=== PATIENT | male | born 1975 | race Caucasian/White ===

== ENCOUNTER 2020-10-30 09:44 | Emergency (ER) | payer SELFPAY ==
[2020-10-30] MEDS ORDERED: SUMAtriptan 6 MG/0.5 ML SDV SUBCUT ONE (10:06)
[2020-10-30] MEDS ORDERED: Ketorolac 30 MG/ML SDV IM ONE (10:06)
--- NOTE | 2020-10-30 10:16 | EDM.PDOC ---
ED HPI GENERAL MEDICAL PROBLEM - General Chief Complaint: Headache Stated Complaint: HEADACHE Time Seen by Provider: 10/30/20 10:00 Source of Information: Reports: Patient - History of Present Illness INITIAL COMMENTS - FREE TEXT/NARRATIVE: Jeff is a 44 y/o male who comes to the ER with complaints of a headache that started about 2 hours ago. He has had cluster headaches in the past and had success with Naproxen and Imitrex. He has not had a headache now for at least 5 years. He did not sleep very well last night as they have been moving the last couple days and he has been doing a lot of lifting. He was nauseated when he woke up, but is better now. Headache Pain Score (Numeric/FACES): 8 Social & Family History - Family History Family Medical History: No Pertinent Family History - Tobacco Use Tobacco Use Status *Q: Current Every Day Tobacco User Years of Tobacco use: 20 Packs/Tins Daily: 1 - Recreational Drug Use Recreational Drug Use: No Review of Systems - Review of Systems Review Of Systems: See Below Constitutional: Reports: No Symptoms Eyes: Reports: Photophobia Ears: Reports: No Symptoms Nose: Reports: No Symptoms Mouth/Throat: Reports: No Symptoms Respiratory: Reports: No Symptoms (hacky cough developed overnight), Cough Cardiovascular: Reports: No Symptoms GI/Abdominal: Reports: Nausea (slightly better now) Genitourinary: Reports: No Symptoms Musculoskeletal: Reports: No Symptoms Skin: Reports: No Symptoms Neurological: Reports: Headache Psychiatric: Reports: No Symptoms ED EXAM, GENERAL - Physical Exam Exam: See Below Exam Limited By: No Limitations General Appearance: Alert, WD/WN, No Apparent Distress, Other (Adult male, ,yig quietly on ER with eys shielded from light.) Eye Exam: Bilateral Eye: Other (Not examined due to light sensitivity) Ears: Normal External Exam, Normal Canal, Hearing Grossly Normal, Normal TMs Nose: Normal Inspection Throat/Mouth: Normal Inspection, Normal Voice Head: Atraumatic, Normocephalic Neck: Normal Inspection, Supple, Non-Tender Respiratory/Chest: No Respiratory Distress, Lungs Clear, Chest Non-Tender Cardiovascular: Normal Peripheral Pulses, Regular Rate, Rhythm, No Murmur GI/Abdominal: Normal Bowel Sounds, Soft, Non-Tender (Male) Exam: Deferred Rectal (Males) Exam: Deferred Back Exam: Normal Inspection Extremities: Normal Inspection, Normal Range of Motion, Normal Capillary Refill Neurological: Alert, Oriented, CN II-XII Intact, Normal Cognition, Normal Gait, Abnormal Reflexes Psychiatric: Normal Mood Skin Exam: Warm, Dry, Intact, Normal Color Lymphatic: No Adenopathy Course - Vital Signs Text/Narrative:: 1000 The patient was seen by the ELECTRICAL ELECTRONICS TECHNICIAN. He was offered IV fluids and an IV headache cocktail, but he preferred IM Toradol and Imitrex SQ since that had worked for him in the past. Toradol 30mg IM and Imitrex 6mg SQ given. 1040 Patient resting. Reports his headache is almost resolved and he is ready to go to rest. ELECTRICAL ELECTRONICS TECHNICIAN advised OTC med use for sx and if further meds needed to seek ca re from a PCP. He was given discharge instructions and left the ER in stable condition with his . Last Recorded V/S: Last Vital Signs Temp 35.5 C L 10/30/20 09:54 Pulse 71 10/30/20 09:54 Resp 18 10/30/20 09:54 BP 134/89 10/30/20 09:54 Pulse Ox 100 10/30/20 09:54 - Orders/Labs/Meds Meds: Medications Discontinued Medications Generic Name Dose Route Start Last Admin Trade Name Dwaine PRN Reason Stop Dose Admin Ketorolac Tromethamine 30 mg 10/30/20 10:06 10/30/20 10:16 Ketorolac 30 Mg/Ml Sdv IM 10/30/20 10:07 30 mg ONETIME ONE Administration Sumatriptan Succinate 6 mg 10/30/20 10:06 10/30/20 10:15 Sumatriptan 6 Mg/0.5 Ml Sdv SUBCUT 10/30/20 10:07 6 mg ONETIME ONE Administration Departure - Departure Time of Disposition: 10:44 Disposition: Home, Self-Care 01 Condition: Good Clinical Impression: Headache Qualifiers: Headache type: unspecified Headache chronicity pattern: acute headache Intractability: not intractable Qualified Code(s): R51.9 - Headache, unspecified - Discharge Information Instructions: Migraine Headache Forms: ED Department Discharge Sepsis Event Note (ED) - Evaluation Sepsis Screening Result: No Definite Risk - Focused Exam Vital Signs: Vital Signs Temp Pulse Resp BP Pulse Ox 10/30/20 09:54 35.5 C L 71 18 134/89 100 - Assessment/Plan Assessment:: 1)Headache Plan: -Use ibuprofen or acetaminophen as needed today for further symptoms -Drink 1-2 liters of water every day. Getting dehydrated can make a headache worse. -Rest. Make sure you are getting regular sleep every night. -Start keeping a journal of your headache symptoms to document when your symptoms start and what relieves them. -Return for further testing if the headaches persists and establish care with a PCP or return to the ER.
== END 2020-10-30 10:51 | disposition home or self-care (01) ==
LOC: VM.ED 09:44
DX: R51.9 Headache, unspecified (principal); R11.0 Nausea; R05 Cough; Z72.0 Tobacco use
CPT/HCPCS: 96372; 99283; J1885; J3030